=== PATIENT | female | born 1980 | race Caucasian/White ===

== ENCOUNTER 2025-07-09 04:58 | Emergency (ER) | payer BC ==
[~2025-07-09] VITALS: Ht 170.2 cm; Wt 125.0 kg
--- NOTE | 2025-07-09 05:03 | ELECTROCARDIOGRAPH REPORT ---
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 CASA Henriquez Measurements Intervals [place] Rate: 94 P: 37 SC: 197 QRS: 70 QRSD: 76 T: 30 QT: 344 QTc: 431 Interpretive Statements Sinus rhythm Borderline prolonged SC interval Low voltage, precordial leads Electronically Signed On 07-10-2025 16:52:[address] CASA Henriquez Please click the below link to view image of tracing.
--- NOTE | 2025-07-09 05:19 | Physician Documentation ---
History of Present Illness ~ Chief Complaint: Abdominal Pain Stated Complaint: CHEST PAINS,SOB Time Seen by MD: 05:15 HPI Patient presents to the emergency room for evaluation of right-sided chest pain right-sided back pain and right-sided abdominal pain onset two days ago. She came in today because it seemed to have gotten worse. She also notes that two days ago the pain seemed to improve with drinking cold water however today she tried the same thing in his seemed to make it worse. Patient does not smoke. She has history of high blood pressure but denies history of hyperlipidemia or diabetes. She does have a significant family history of heart attack in her dad in his 50s. Medication Reconciliation Allergies: Coded Allergies: acetaminophen (Verified Allergy, Unknown, 07/09/25) hydrocodone (Verified Allergy, Unknown, 07/09/25) Review of Systems ROS All review of systems negative except as per HPI Physical Exam Vital Signs: Temperature: 96.3, Source: Temporal, Heart Rate: 87, Respiratory Rate: 15, Pulse Oximetry: 99, Weight: 125.000 Physical Exam General: Patient is awake, alert, oriented x4 in no acute distress Head: Normocephalic and atraumatic. Eyes: Conjunctival normal. EOMI. PERRL. ENT: Mucous membranes moist. Neck: Supple, trachea is midline. Chest: Clear to auscultation bilaterally without rales, rhonchi, or wheezes. There is no accessory muscle use or retractions. Cardiac: RRR without murmurs, gallops, or rubs. Abd: Soft, nondistended, nontender, with normoactive bowel sounds. No guarding, rebound, or rigidity. Progress Results/Orders Results/Orders Medications Received in ER Medications (Trade) Dose Ordered Sig/Kip Route PRN Reason Start Time Stop Time Status Last Admin Dose Admin (Zofran ODT tablet) 4 mg ONCE ONCE PO 07/09/25 05:25 07/09/25 05:26 DC 07/09/25 05:39 4 MG (Maalox oral suspension) 30 ml ONCE ONCE PO 07/09/25 05:25 07/09/25 05:26 DC 07/09/25 05:40 30 ML (Xylocaine 2% Viscous 15mL cup) 15 ml ONCE ONCE MM 07/09/25 05:25 07/09/25 05:26 DC 07/09/25 05:40 15 ML (Pepcid tablet) 20 mg ONCE ONCE PO 07/09/25 05:25 07/09/25 05:26 DC 07/09/25 05:39 20 MG (fentaNYL 0.05 MG/ML syringe) 75 mcg ONCE ONCE IV 07/09/25 06:10 07/09/25 06:11 DC 07/09/25 06:13 75 MCG (Apresoline inj.) 20 mg ONCE ONCE IV 07/09/25 06:15 07/09/25 06:16 DC 07/09/25 07:22 20 MG Vital Signs 07/09/25 07/09/25 07/09/25 07/09/25 05:13 05:20 05:20 06:10 Temp 96.3 Pulse 87 83 80 Resp 15 16 15 18 B/P (MAP) 192/111 (138) 200/105 (136) Pulse Ox 99 99 99 O2 Flow Rate 0 07/09/25 07/09/25 07/09/25 07/09/25 06:13 07:00 07:00 07:22 Pulse 83 82 Resp 16 16 16 B/P (MAP) 172/100 (124) Pulse Ox 95 O2 Flow Rate 0 07/09/25 07/09/25 08:00 08:57 Pulse 105 105 Resp 16 B/P (MAP) 179/95 (123) 142/84 (103) Pulse Ox 96 95 O2 Flow Rate 0 0 Laboratory Tests Test 07/09/25 05:30 07/09/25 06:00 White Blood Count 8.1 Red Blood Count 4.49 Hemoglobin 14.3 Hematocrit 40.5 Mean Corpuscular Volume 90.1 Mean Corpuscular Hemoglobin 31.8 H Mean Corpuscular Hemoglobin Concent 35.3 Red Cell Distribution Width 13.4 Platelet Count 196 Mean Platelet Volume 8.9 Neutrophils (%) (Auto) 62.6 Lymphocytes (%) (Auto) 25.1 Monocytes (%) (Auto) 9.5 Eosinophils (%) (Auto) 1.7 Basophils (%) (Auto) 1.1 H Neutrophils # (Auto) 5.1 Lymphocytes # (Auto) 2.0 Monocytes # (Auto) 0.8 Eosinophils # (Auto) 0.1 Basophils # (Auto) 0.1 CBC Comment D-Dimer 0.80 H D-Dimer Comment Sodium Level 137 Potassium Level 4.1 Chloride Level 105 Carbon Dioxide Level 26.4 Anion Gap 6 L Blood Urea Nitrogen 10 Creatinine 0.62 Estimated GFR/1.73 m2 > 90 BUN/Creatinine Ratio 16.1 Glucose Level 171 H Calcium Level 8.3 L Total Bilirubin 0.7 Aspartate Amino Transf (AST/SGOT) 84 H Alanine Aminotransferase (ALT/SGPT) 70 Alkaline Phosphatase 109 Troponin I High Sensitivity 11 Total Protein 7.1 Albumin 3.3 L Globulin 3.8 Albumin/Globulin Ratio 0.9 L Lipase 30 Chemistry Comments Urine Specimen Description Non-specified Urine Color Straw Urine Clarity Slightly cloudy Urine pH 6.0 Urine Specific [place] 1.020 Urine Protein Negative Urine Glucose (UA) Negative Urine Ketones Negative Urine Occult Blood Small Urine Nitrite Negative Urine Bilirubin Negative Urine Urobilinogen 1.0 Urine Leukocyte Esterase Negative Urine RBC 3-10 Urine WBC 0-4 Urine Squamous Epithelial Cells Few Urine Bacteria Few Urine Culture Indicated Not ind Volume Urine Centrifuged 10 ml Urine HCG, Qualitative Negative Urine Comment EKG/XRAY/CT/US/VASC/MRI EKG : Additional Comment EKG interpreted by myself shows time of 0502, rate 94, sinus rhythm, normal axis, no ST changes Medical Decision Making Additional information obtaine: old records Diff Dx GI Bleed:Consideration: Include: AE fistula, Angiodysplasia, Bleeding diathesis, Blood loss anemia, Carcinoma, Diverticulosis, Diverticulitis, Esophageal varicies, Esophagitis, Gastritis, Gastroenteritis, Inflammatory BD, Ida-Hannon syndrome, Meckel's diverticulum, PUD, Other Diff Dx Pain:Considerations: Include: AAA, -Complete, - Incomplete, -Inevitable, -Missed, -Threatened, Abruptio placentae, Angina/NC, Aortic dissection, Appendicitis, Bowel obstruction, Cholangitis, Cholecystitis, Cholelithasis, Constipation, Diverticular disease, Dysmenorrhea, Ectopic , Esophageal rupture, Esophagitis, Gastritis/PUD, Gastroenteritis, GI hemorrhage, Hernia, Hepatitis, Inflammatory BD, Ischemic bowel, Mass, Ovarian cyst/torsion, Pancreatitis, PID, Porphyria, Trauma, intraa bdominal, Urinary obstruction, Urinary tract infection, Urolithiasis, Other Diff Dx N/V/D:Considerations: Include: Appendicitis, Bowel obstruction, Dehydration, DKA, Diarrhea - bacterial, Diarrhea - parasitic, Diarrhea - viral, Diverticulitis, Diverticulosis, Drug toxicity, Electrolyte imbalance, Food poisoning, Gastroenteritis, GE reflux, GI bleed, Hepatitis, Hernia, Hypovolemia, Hypotension, Inflammatory BD, Impaction, Malnutrition, Pancreatitis, , PUD, Renal failure, Urolithiasis, Urinary obstruction, UTI, Other Diff Dx Rectal:Considerations: Include: Fissure, Fistula, Foreign body, Impaction, Perirectal abscess, Rectal prolapse, Subcutaneous abscess, Thrombosed hemorrhoid, Ulcer, UTI, Other Departure Disposition: HOME / SELF CARE / HOMELESS Impression: Primary Impression: Right flank pain Additional Impressions: Pyelonephritis Cholelithiasis without obstruction Condition: Improved Discharge Instructions: Pyelonephritis, Adult Referrals: NO PRIMARY CARE PROVIDER (PCP) Prescriptions Amox Tr/Potassium Clavulanate (Augmentin 875-125 Tablet) 1 Each Tablet 1 TAB PO Q12H for 10 Days, #20 TAB Prov: SAÚL FINNEY DO 07/09/25 Education Educated: Patient Educated regarding: diagnosis, treatment, prognosis, need for follow up Additional Comment Additional Comment Date: Jul 09, 2025 Time: 09:15 Additional note by Saúl Finney DO: I took over the care of this patient from previous physician. I reviewed any previous notes available, obtain my own history, review of systems and physical examination was performed by myself. This is a 45-year-old female with a significant past medical history of hypertension, coronary artery disease at early age in the family who presented for evaluation of right-sided chest and abdominal pain as well as back pain. Patient was signed out pending labs and imaging. Hemodynamics reviewed. The patient is markedly hypotensive, responded well to hydralazine, slightly tachycardic which could be rebound effect from hydralazine. No evidence of respiratory distress. CBC normal, no evidence of leukocytosis. Normal platelets. No neutrophilic predominance. No anemia. Coagulation panel shows elevated D-dimer. Chemistry shows no acute cardiopulmonary disease. Troponin is negative. Lipase is normal. CT angiography of the chest, abdomen and pelvis revealed no acute process, no aneurysm or dissection. Cholelithiasis noted. Urinalysis is questionable with a positive for UTI. GENERAL: Awake, alert, oriented, GCS 15, no apparent distress, non-toxic appearing, answers questions, follows commands appropriately. Examined in bed 7. HEENT: Atraumatic, normocephalic, pupils equal, extraocular muscles intact, sclerae anicteric, mucus membranes moist, oropharynx is clear, no stridor. NECK: supple, full active range of motion, trachea midline, no thyromegaly, no lymphadenopathy, no JVD. CARDIOVASCULAR: regular rate/rhythm, no murmurs/gallops/rubs, Pulses are 2+ in all extremities and symmetric. Capillary refill less than 2 seconds. PULMONARY: Nonlabored, good air movement ,no respiratory distress, speaking in full sentences, clear to auscultation bilaterally, no wheezing, no ronchi, no rales, no accessory muscle use. GASTROINTESTINAL: Soft, non-tender, non-distended, normal active bowel sounds, no organomegaly, no pulsatile masses, right CVA tenderness. NEUROLOGIC: Lucid with normal mental status. Normal facial symmetry. Moves all extremities symmetrically and with purpose. No truncal ataxia. Speech is fluid without evidence of dysarthria or aphasia, no focal deficits appreciated. MUSCULOSKELETAL: There is full range of motion of all extremities. There is no joint pain or joint swelling or joint erythema. There is no muscle pain or tenderness or swelling. EXTREMITIES: warm, well-perfused, no cyanosis, no clubbing, no edema, no acute deformities. Skin: warm, dry, no rashes or lesions, no jaundice, no petechiae orpurpura. No ecchymosis. PSYCHIATRIC: Normal affect, normal insight, normal concentration. Focused exam: Patient is hemodynamically stable for discharge home with follow with their [facility] care provider. [ ] Specific and cautious return precautions provided and discussed with full understanding. Any incidental findings were also discussed and follow up recommendations given. [] All questions answered. Patient/family were able to verbalize back return precautions. Patient/family agree to plan. Copies of imaging and laboratory studies were provided. Signature Scribe Signature: No scribe Attestation: The note accurately reflects work and decisions made by me.Terry Desai MD 07/09/25 05:29 Date: Jul 09, 2025 Time: 09:22 This note accurately reflects clinical decisions, work performed by myself, DO ZOLTAN Esteban JESSE G MD Jul 09, 2025 05:19 SAÚL FINNEY DO Jul 09, 2025 09:21
[2025-07-09] MEDS: ondansetron 4mg rapidly disintigrating tab PO ONE (05:39)
[2025-07-09] MEDS: mag hydrox/Alum hydrox/simeth 30ml oral suspension PO ONE (05:40)
[2025-07-09] MEDS: LIDOcaine 2% Viscous 15ml cup MM ONE (05:40)
[2025-07-09 05:45] LABS: MEAN PLATELET VOLUME 8.9 FL (7.4-10.4); RED CELL DISTRIBUTION WIDTH 13.4 % (11.5-14.5)
[2025-07-09 06:00] LABS: CREATININE 0.62 MG/DL (0.40-0.90); TOTAL CARBON DIOXIDE 26.4 MMOL/L (24-32); eCRCL 109 ML/MIN; eGFR > 90 ML/MIN
[2025-07-09] MEDS: fentaNYL/PF 50MCG/1 ML 2ML syringe IV ONE (06:13)
[2025-07-09 06:17] LABS: LEUKOCYTE ESTERASE ,URINE NEGATIVE (Neg); NITRITES, URINE NEGATIVE (Neg); OCCULT BLOOD,URINE SMALL (Neg)
[2025-07-09 06:18] LABS: URINE HCG NEGATIVE (NEG)
--- NOTE | 2025-07-09 06:20 | RADIOLOGY REPORT ---
CHEST RADIOGRAPH Indication: cp Technique: Single frontal view of the chest was obtained. Comparison: None FINDINGS: Lines and Tubes: None Lungs: No focal consolidation. Pleura: No effusion. No pneumothorax. Cardiomediastinal contours: Unremarkable Bones: No acute osseous abnormality. IMPRESSION: 1. No acute cardiopulmonary disease.
[2025-07-09 06:33] LABS: UA COLLECTION TYPE NON-SPECIFIED
[2025-07-09 06:35] LABS: SQUAMOUS EPITHELIAL CELL,UR FEW /LPF (FEW)
[2025-07-09] MEDS: hydrALAZINE 20mg/ml inj. IV ONE (07:22)
--- NOTE | 2025-07-09 07:47 | RADIOLOGY REPORT ---
Exam: CT CTA CHEST ABDOMEN PELVIS History: Concern for aorta Comparison Study: DI CHEST,SINGLE VIEW on DOS: 07/09/25 Technique: CT angiography of the chest, abdomen and pelvis were obtained. Coronal sagittal 3D/MIP images are provided. Radiation Dose : 1. Chest/Abdomen/Pelvis: CTDIvol 26.1 mGy, DLP 1948.1 mGy*cm. Findings: Lower neck: Calcified left thyroid nodule. Lungs: No suspicious pulmonary nodule. No focal airspace consolidation. Central airways: Patent. Pleura: No pneumothorax or pleural effusions. Heart/Vascular Structures: The heart is normal in size. No pericardial effusion. Normal caliber thoracic aorta. No thoracic aortic dissection or aneurysm. Normal caliber main pulmonary artery. Lymph Nodes: No adenopathy Liver: The liver is normal in size. No focal lesions. Normal hepatic vascular enhancement. Gallbladder and Biliary Tree: There is a gallstone. No biliary ductal dilatation. Spleen: Unremarkable Pancreas: The pancreas is normal in appearance without focal lesions or abnormal enhancement. Adrenal Glands: Unremarkable Kidneys: Kidneys demonstrate normal symmetric enhancement without focal lesions, calculi or hydronephrosis. Bladder: Unremarkable Bowel: The stomach is grossly normal in appearance. Small bowel and colon are normal in caliber and distribution. The appendix is not visualized; however, no secondary findings of acute appendicitis identified. Peritoneum: No pneumoperitoneum. No ascites. Lymphadenopathy: No mesenteric, retroperitoneal or periportal lymphadenopathy. Abdominal Wall and Mesentery: Unremarkable. Vasculature: The visualized abdominal aorta is normal in size and caliber. The celiac, superior and inferior mesenteric artery, bilateral renal arteries, splenic artery, bilateral common iliac arteries and branches are patent. No abdominal aortic aneurysm or dissection. Pelvic Organs: Unremarkable Musculoskeletal: No aggressive focal bony lesions, acute fractures or dislocation. IMPRESSION: 1. No acute process in the chest, abdomen or pelvis. 2. No evidence of aortic aneurysm or dissection. 3. Cholelithiasis.
[2025-07-09 08:57] VITALS: PULSE 105
[2025-07-09] MEDS ORDERED: AMOX-117 PO (09:21)
[2025-07-09] MEDS: CefTRIAXone 2gm/D5W 50ml BAG 50 ML IV ONE (09:34)
[2025-07-09 10:39] VITALS: BP 155/98; RESP 16; TEMP 96.3; O2SAT 99
== END 2025-07-09 10:31 | disposition home or self-care (01) ==
LOC: ER 04:59
DX: K80.20 Calculus of gallbladder without cholecystitis without obstruction (principal); N12 Tubulo-interstitial nephritis, not specified as acute or chronic; Z88.5 Allergy status to narcotic agent
CPT/HCPCS: 36415; 71045; 71275; 74174; 80053; 81001; 81025; 83690; 84484; 85025; 85379; 93005; 96365; 96375; 99285; J0360; J0696; J3010; Q9967